=== PATIENT | female | born 1985 | race Caucasian/White ===

== ENCOUNTER 2017-07-12 10:09 | Outpatient (CLI) | payer OTHER | END 2017-07-12 10:16 | disposition home or self-care (01) | LOC: SONOGRAMA 10:09 | DX: E04.1 Nontoxic single thyroid nodule (principal) ==

== ENCOUNTER 2019-11-27 20:09 | Emergency (ER) | payer OTHER ==
[~2019-11-27] VITALS: Ht 167.6 cm; Wt 103.4 kg
[2019-11-27] MEDS ORDERED: PRENATALES (20:26)
== END 2019-11-27 23:55 | disposition home or self-care (01) ==
LOC: ER 20:09
DX: O99.611 Diseases of the digestive system complicating pregnancy, first trimester (principal); K80.80 Other cholelithiasis without obstruction; Z3A.12 12 weeks gestation of pregnancy

== ENCOUNTER → 2020-01-10 | Outpatient (CLI) | payer OTHER ==
[~2020-01-10] MED LIST: PRENATALES
== END | disposition home or self-care (01) ==
LOC: PRENATAL 13:00
PROVIDERS: ATTEND Obstetrics & Gynecology Maternal & Fetal Medicine
DX: O35.0XX1 Maternal care for (suspected) central nervous system malformation in fetus, fetus 1 (principal); O09.522 Supervision of elderly multigravida, second trimester; O24.414 Gestational diabetes mellitus in pregnancy, insulin controlled; O99.212 Obesity complicating pregnancy, second trimester; O26.872 Cervical shortening, second trimester; O09.212 Supervision of pregnancy with history of pre-term labor, second trimester; O35.3XX1 Maternal care for (suspected) damage to fetus from viral disease in mother, fetus 1; O98.512 Other viral diseases complicating pregnancy, second trimester; Z36.89 Encounter for other specified antenatal screening; Z3A.18 18 weeks gestation of pregnancy

== ENCOUNTER → 2020-02-07 | Outpatient (CLI) | payer OTHER | END | disposition home or self-care (01) | LOC: PRENATAL 13:00 | PROVIDERS: ATTEND Obstetrics & Gynecology Maternal & Fetal Medicine | DX: O26.842 Uterine size-date discrepancy, second trimester (principal); O09.522 Supervision of elderly multigravida, second trimester; O24.410 Gestational diabetes mellitus in pregnancy, diet controlled; O99.212 Obesity complicating pregnancy, second trimester; O09.212 Supervision of pregnancy with history of pre-term labor, second trimester; Z36.89 Encounter for other specified antenatal screening; Z3A.22 22 weeks gestation of pregnancy ==

== ENCOUNTER 2020-03-06 13:21 | Outpatient (CLI) | payer OTHER ==
[~2020-03-06 13:21] MED LIST changes: +HUMULIN N100 UNIT/2 SUBCUTANEO; +INSULIN SYRING1 EA29 SUBCUTANEO
== END 2020-03-06 17:44 | disposition home or self-care (01) ==
LOC: OBS/DEL 13:21
PROVIDERS: ATTEND Obstetrics & Gynecology
DX: O26.842 Uterine size-date discrepancy, second trimester (principal); O09.522 Supervision of elderly multigravida, second trimester; O24.410 Gestational diabetes mellitus in pregnancy, diet controlled; O99.212 Obesity complicating pregnancy, second trimester; O09.212 Supervision of pregnancy with history of pre-term labor, second trimester; O36.8130 Decreased fetal movements, third trimester, not applicable or unspecified

== ENCOUNTER → 2020-04-24 | Outpatient (CLI) | payer OTHER ==
[~2020-04-24] MED LIST changes: +CHILDREN'S ASPI81 MG PO; +MACRODANTIN25 MG PO; +PRENATAL TABLE1 EAC1 PO
== END | disposition home or self-care (01) ==
LOC: PRENATAL 15:00
PROVIDERS: ATTEND Obstetrics & Gynecology Maternal & Fetal Medicine
DX: O26.843 Uterine size-date discrepancy, third trimester (principal); O24.410 Gestational diabetes mellitus in pregnancy, diet controlled; Z36.89 Encounter for other specified antenatal screening; Z3A.29 29 weeks gestation of pregnancy

== ENCOUNTER 2020-05-14 16:50 | Outpatient (CLI) | payer OTHER ==
[~2020-05-14 16:50] MED LIST changes: -CHILDREN'S ASPI81 MG PO; -MACRODANTIN25 MG PO; -PRENATAL TABLE1 EAC1 PO
[2020-05-14] MEDS ORDERED: MACRODANTIN25 MG PO (17:43)
[2020-05-14] MEDS ORDERED: PRENATAL TABLE1 EAC1 PO (17:43)
[2020-05-14] MEDS ORDERED: HUMULIN N100 UNIT/2 SUBCUTANEO (17:43)
[2020-05-14] MEDS ORDERED: CHILDREN'S ASPI81 MG PO (17:44)
== END 2020-05-14 23:00 | disposition home or self-care (01) ==
LOC: OBS/DEL 16:50
PROVIDERS: ATTEND Obstetrics & Gynecology
DX: O24.410 Gestational diabetes mellitus in pregnancy, diet controlled (principal); O13.3 Gestational [pregnancy-induced] hypertension without significant proteinuria, third trimester

== ENCOUNTER → 2020-05-20 | Outpatient (CLI) | payer OTHER ==
[~2020-05-20] MED LIST changes: +CHILDREN'S ASPI81 MG PO; +MACRODANTIN25 MG PO; +PRENATAL TABLE1 EAC1 PO
== END | disposition home or self-care (01) ==
LOC: PRENATAL 15:52
PROVIDERS: ATTEND Obstetrics & Gynecology Maternal & Fetal Medicine
DX: O26.843 Uterine size-date discrepancy, third trimester (principal); O24.410 Gestational diabetes mellitus in pregnancy, diet controlled; O35.0XX1 Maternal care for (suspected) central nervous system malformation in fetus, fetus 1; O13.3 Gestational [pregnancy-induced] hypertension without significant proteinuria, third trimester; O09.523 Supervision of elderly multigravida, third trimester; Z36.89 Encounter for other specified antenatal screening; Z3A.36 36 weeks gestation of pregnancy

== ENCOUNTER 2020-05-28 17:00 | Inpatient (IN) | payer OTHER ==
[~2020-05-28] VITALS: Ht 167.6 cm; Wt 101.6 kg
== END 2020-06-01 13:28 | disposition home or self-care (01) | DRG 788 ==
LOC: OBS/DEL 17:00 → LDR 05-29 11:39 → OB/GYN 05-29 11:39 → O/R 05-29 18:00 → OB/GYN 05-29 21:06
PROVIDERS: ADMIT Obstetrics & Gynecology; ATTEND Obstetrics & Gynecology
PROC: 3E033VJ Introduction of Other Hormone into Peripheral Vein, Percutaneous Approach (ICD-10-PCS; 2020-05-29)
PROC: 4A1HXFZ Monitoring of Products of Conception, Cardiac Rhythm, External Approach (ICD-10-PCS; 2020-05-29)
PROC: 10D00Z1 Extraction of Products of Conception, Low, Open Approach (ICD-10-PCS; principal; 2020-05-29 17:00)
DX: O61.0 Failed medical induction of labor (principal); O24.424 Gestational diabetes mellitus in childbirth, insulin controlled; Z3A.38 38 weeks gestation of pregnancy; Z37.0 Single live birth; Z20.822 Contact with and (suspected) exposure to COVID-19

== ENCOUNTER 2020-07-08 10:05 | Emergency (ER) | payer OTHER ==
[~2020-07-08] VITALS: Ht 167.6 cm; Wt 90.7 kg
[2020-07-08] MEDS ORDERED: PRENA1 TRUE CO1 EACH (10:35)
== END 2020-07-08 12:59 | disposition left against medical advice (07) ==
LOC: ER 10:05
DX: R10.13 Epigastric pain (principal); R07.89 Other chest pain

== ENCOUNTER 2020-08-23 09:18 | Emergency (ER) | payer OTHER ==
[~2020-08-23] VITALS: Ht 167.6 cm; Wt 96.6 kg
[~2020-08-23 09:18] MED LIST changes: +PRENA1 TRUE CO1 EACH
[2020-08-23] MEDS ORDERED: INTESTINEX680 M1 PO (16:40)
[2020-08-23] MEDS ORDERED: AMOX-CLAV 500-1 EACH PO (16:40)
[2020-08-23] MEDS ORDERED: KETO10TA2 PO (16:40)
[2020-08-23] MEDS ORDERED: PEPCID AC20 MG PO (16:40)
[2020-08-23] MEDS ORDERED: LEVSIN/SL0.125 MG PO (16:40)
== END 2020-08-23 17:05 | disposition home or self-care (01) ==
LOC: ER 09:18
DX: K80.20 Calculus of gallbladder without cholecystitis without obstruction (principal); R10.84 Generalized abdominal pain

== ENCOUNTER 2021-11-29 18:28 | Emergency (ER) | payer OTHER ==
[~2021-11-29] VITALS: Ht 167.6 cm; Wt 101.2 kg
[~2021-11-29 18:28] MED LIST changes: +AMOX-CLAV 500-1 EACH PO; +INTESTINEX680 M1 PO; +KETO10TA2 PO; +LEVSIN/SL0.125 MG PO; +PEPCID AC20 MG PO
== END 2021-11-30 00:10 | disposition home or self-care (01) ==
LOC: ER 18:28
DX: O26.891 Other specified pregnancy related conditions, first trimester (principal); M54.9 Dorsalgia, unspecified; Z3A.01 Less than 8 weeks gestation of pregnancy

== ENCOUNTER 2021-12-17 10:52 | Outpatient (CLI) | payer OTHER | END 2021-12-17 11:37 | disposition home or self-care (01) | LOC: PRENATAL 10:52 | PROVIDERS: ATTEND Obstetrics & Gynecology Maternal & Fetal Medicine | DX: Z34.00 Encounter for supervision of normal first pregnancy, unspecified trimester (principal) ==

== ENCOUNTER 2022-01-01 14:05 | Outpatient (CLI) | payer OTHER | END 2022-01-01 15:35 | disposition home or self-care (01) | LOC: PRENATAL 14:05 | PROVIDERS: ATTEND Obstetrics & Gynecology Maternal & Fetal Medicine | DX: O36.80X0 Pregnancy with inconclusive fetal viability, not applicable or unspecified (principal); O09.529 Supervision of elderly multigravida, unspecified trimester; O24.419 Gestational diabetes mellitus in pregnancy, unspecified control; Z3A.11 11 weeks gestation of pregnancy ==

== ENCOUNTER 2022-04-16 09:56 | Outpatient (CLI) | payer OTHER ==
[~2022-04-16 09:56] MED LIST changes: +FOLIC ACID20 MG PO; +PRENATAL CAPLE1 EAC1 PO
== END 2022-04-16 12:00 | disposition home or self-care (01) ==
LOC: PRENATAL 09:56
PROVIDERS: ATTEND Obstetrics & Gynecology Maternal & Fetal Medicine
DX: O26.849 Uterine size-date discrepancy, unspecified trimester (principal); O09.529 Supervision of elderly multigravida, unspecified trimester; O24.419 Gestational diabetes mellitus in pregnancy, unspecified control; O99.210 Obesity complicating pregnancy, unspecified trimester; O44.00 Complete placenta previa NOS or without hemorrhage, unspecified trimester; Z3A.26 26 weeks gestation of pregnancy

== ENCOUNTER 2022-05-27 09:57 | Outpatient (CLI) | payer OTHER | END 2022-05-27 11:35 | disposition home or self-care (01) | LOC: PRENATAL 09:57 | PROVIDERS: ATTEND Obstetrics & Gynecology Maternal & Fetal Medicine | DX: O26.849 Uterine size-date discrepancy, unspecified trimester (principal); O99.210 Obesity complicating pregnancy, unspecified trimester; O24.419 Gestational diabetes mellitus in pregnancy, unspecified control; O34.219 Maternal care for unspecified type scar from previous cesarean delivery; O09.529 Supervision of elderly multigravida, unspecified trimester; Z3A.32 32 weeks gestation of pregnancy ==

== ENCOUNTER 2022-06-24 09:07 | Outpatient (CLI) | payer OTHER | END 2022-06-24 11:17 | disposition home or self-care (01) | LOC: PRENATAL 09:07 | PROVIDERS: ATTEND Obstetrics & Gynecology Maternal & Fetal Medicine | DX: O26.849 Uterine size-date discrepancy, unspecified trimester (principal); O24.419 Gestational diabetes mellitus in pregnancy, unspecified control; O99.210 Obesity complicating pregnancy, unspecified trimester; O09.529 Supervision of elderly multigravida, unspecified trimester; O34.219 Maternal care for unspecified type scar from previous cesarean delivery; O41.00X0 Oligohydramnios, unspecified trimester, not applicable or unspecified; Z3A.34 34 weeks gestation of pregnancy ==

== ENCOUNTER 2022-06-24 13:07 | Inpatient (IN) | payer OTHER ==
[~2022-06-24] VITALS: Ht 167.6 cm; Wt 102.1 kg
== END 2022-06-29 17:27 | disposition home or self-care (01) | DRG 784 ==
LOC: LDR 13:07 → OB/GYN 06-26 16:18
PROVIDERS: ADMIT Obstetrics & Gynecology; ATTEND Obstetrics & Gynecology
PROC: 4A1HXCZ Monitoring of Products of Conception, Cardiac Rate, External Approach (ICD-10-PCS; 2022-06-24)
PROC: 0UB70ZZ Excision of Bilateral Fallopian Tubes, Open Approach (ICD-10-PCS; 2022-06-26)
PROC: 10D00Z1 Extraction of Products of Conception, Low, Open Approach (ICD-10-PCS; principal; 2022-06-26 08:45)
DX: O60.14X0 Preterm labor third trimester with preterm delivery third trimester, not applicable or unspecified (principal); O41.03X0 Oligohydramnios, third trimester, not applicable or unspecified; O36.5930 Maternal care for other known or suspected poor fetal growth, third trimester, not applicable or unspecified; O34.211 Maternal care for low transverse scar from previous cesarean delivery; Z3A.36 36 weeks gestation of pregnancy; Z37.0 Single live birth; Z30.2 Encounter for sterilization; Z20.822 Contact with and (suspected) exposure to COVID-19

== ENCOUNTER 2022-11-18 07:28 | Emergency (ER) | payer OTHER ==
[~2022-11-18] VITALS: Ht 167.6 cm; Wt 96.6 kg
== END 2022-11-18 10:56 | disposition home or self-care (01) ==
LOC: ER 07:28
DX: N64.4 Mastodynia (principal); Z88.1 Allergy status to other antibiotic agents

== ENCOUNTER 2024-04-07 07:55 | Emergency (ER) | payer OTHER ==
[~2024-04-07] VITALS: Ht 167.6 cm; Wt 100.2 kg
[2024-04-07] MEDS ORDERED: PIPERACILLIN/TAZOBACTAM SODIUM 3.375 GM VIAL IV STA (09:00)
[2024-04-07] MEDS ORDERED: MEPERIDINE HCL/PF 50 MG/ML VIAL IM STA (09:02)
[2024-04-07] MEDS ORDERED: RINGERS SOLUTION,LACTATED 1,000 ML IV STA (09:03)
[2024-04-07 09:48] LABS: HEMATOCRIT 38.9 % (36.0-45.00); HEMOGLOBIN 12.5 g/dL (12.0-15.00); MEAN CELL VOLUME 84.6 fL (80.00-100.00); MEAN CORPUSCULAR HEMOGLOBIN 27.2 pg (27.00-32.0); MEAN CORPUSCULAR HGB CONC 32.2 g/dl (32.0-36.0); PLATELET COUNT 254 K/uL (150-450); RED CELL DISTRIBUTION WIDTH 16.3 % (11.5-14.5)
[2024-04-07 10:43] LABS: ALBUMIN 3.7 gm/dL (3.4-5.0); ALKALINE PHOSPHATASE 69 U/L (50-136); ALT/SGPT 28 U/L (12-78); ANION GAP 10 (10.0-20.0); AST/SGOT 23 U/L (15-37); BILIRUBIN TOTAL 0.43 mg/dL (0.3-1.2); BILIRUBIN,CONJUGATED < 0.10 mg/dL (0.0-0.2); BILIRUBIN,UNCONJUGATED 0.33 mg/dL (0.0-0.6); BLOOD UREA NITROGEN 12 mg/dL (7-18); BUN CREA RATIO 19 (7.0-25.0); CALCIUM 8.9 mg/dL (8.5-10.1); CARBON DIOXIDE 26 mEq/L (21-32); CHLORIDE 108 mmol/L (98-107); CREATININE SERUM 0.62 mg/dL (0.55-1.02); GFR 106.08; GLUCOSE FASTING 111 mg/dL (65-100); OSMOLALITY SERUM 278 MOSM/KG (275-295); POTASSIUM 4.59 mEq/L (3.5-5.1); SODIUM 139 mmol/L (136-145); TOTAL PROTEIN 7.4 gm/dL (6.4-8.2)
[2024-04-07] MEDS ORDERED: CIPROFLOXACIN IN 5 % DEXTROSE 400 MG/200 ML PIGGYBAG IV STA (14:05)
[2024-04-07 14:38] LABS: URINE APPEARANCE Cloudy; URINE BILIRRUBIN Negative (NEGATIVE); URINE BLOOD Negative; URINE COLOR Yellow; URINE GLUCOSE Negative (NEGATIVE); URINE KETONE Negative (NEGATIVE); URINE LEUKOCYTE Negative; URINE NITRATE Negative; URINE PROTEIN Negative (NEGATIVE); URINE UROBILINOGEN 0.2 E.U./dl
[2024-04-07 14:42] LABS: URINE BACTERIA 1878.5 uL (0.0-1933); URINE EPITHELIAL CELLS 22.8 uL (0.0-38.8); URINE RBC 6.7 uL (0.0-20.8); URINE WBC 7.5 uL (0.0-23.2)
[2024-04-07 14:56] LABS: URINE CAST 0.15 uL (0.0-1.40)
== END 2024-04-07 14:55 | disposition home or self-care (01) ==
LOC: ER 07:57
PROVIDERS: General Practice
DX: R10.9 Unspecified abdominal pain (principal); K57.32 Diverticulitis of large intestine without perforation or abscess without bleeding; Z88.8 Allergy status to other drugs, medicaments and biological substances
CPT/HCPCS: 36415; 74176; 96365; 99284; J2543; J3490